=== PATIENT | male | born 1995 | race Asian ===

== ENCOUNTER 2017-02-17 03:28 | Emergency (ER) | payer OTHER ==
[~2017-02-17] VITALS: Ht 182.9 cm; Wt 58.4 kg
[2017-02-17 03:31] VITALS: TEMP 36.8; Ht 182.9 cm; Wt 58.4 kg
[2017-02-17] MEDS ORDERED: KETOROLAC TROMETHAMINE 30 MG/ML VIAL IV STA (03:45)
[2017-02-17 04:15] LABS: URINE APPEARANCE CLEAR (CLEAR); URINE BILIRUBIN NEG (NEG); URINE COLOR DK YELLOW; URINE NITRITE NEG (NEG); URINE PH 6.5 (4.5-7.5); URINE SPECIFIC GRAVITY 1.029 (1.000-1.030); UROBILINOGEN POS (NEG); ZZUR CULT IF INDIC CLEAN CATCH NO
[2017-02-17 04:21] LABS: BASO % 0.1 %; BASO ABS # 0.01 K/uL (0-0.2); COMPLETE YES; HEMATOCRIT 42.4 % (42-52); IG% 0.1 %; LYMPH % 23.8 %; LYMPH ABS # 1.69 K/uL (1.2-3.4); MEAN CELL VOLUME 87.6 fL (80-100); MEAN CORPUSCULAR HEMOGLOBIN 31.8 pg (25-34); MEAN CORPUSCULAR HGB CONC 36.3 g/dl (32-36); MEAN PLATELET VOLUME 9.5 fL (7.4-10.4); MONO % 9.2 %; NEUT % 65.8 %; PLATELET COUNT 159 K/uL (130-400); RED BLOOD COUNT 4.84 M/uL (4.7-6.1)
[2017-02-17 04:22] LABS: MANUAL MICROSCOPIC REQUIRED? NO; REVIEW REQ? NO
[2017-02-17 04:53] LABS: ALT/SGPT 20 U/L (12-78); AST/SGOT 12 U/L (15-37); BLOOD UREA NITROGEN 13 mg/dl (7-18); BUN/CREATININE RATIO 17.7 (10-20); CALCIUM 8.6 mg/dl (8.5-10.1); CARBON DIOXIDE 24 mmol/L (21-32); CHLORIDE 104 mmol/L (98-107); CREATININE 0.75 mg/dl (0.60-1.40); GLUCOSE 104 mg/dl (70-99); POTASSIUM 3.2 mmol/L (3.5-5.1); SODIUM 135 mmol/L (136-145)
[2017-02-17 04:56] LABS: ALB/GLOB RATIO 1.1 (0.9-2); ALKALINE PHOSPHATASE 60 U/L (45-117)
[2017-02-17] MEDS ORDERED: MAGNESIUM CITRATE 296 ML/BTL PO ONE (05:45)
[2017-02-17 05:54] VITALS: BP 104/70; PULSE 92; O2SAT 95
--- NOTE | 2017-02-17 08:14 | DIAGNOSTIC IMAGING REPORT ---
PA CHEST WITH ABDOMINAL SERIES CLINICAL HISTORY: Right lower quadrant abdominal pain. FINDINGS: A PA chest radiograph is obtained. No prior studies are available for comparison at the time of dictation. The cardiomediastinal silhouette is unremarkable. Mild patchy airspace opacities are questioned in the left midlung. The lungs and pleural spaces are otherwise clear. No pneumothorax is seen. The bony thorax is grossly intact. There is mild S-shaped thoracolumbar scoliosis. Supine and erect abdominal radiographs are obtained. No prior studies are available for comparison at the time of dictation. There is a nonobstructed abdominal bowel gas pattern. No evidence of intraperitoneal free air is seen. There are no abnormal abdominal calcifications. The lumbosacral spine and bony pelvis appear intact. IMPRESSION: 1. Question patchy airspace opacities in the left midlung. Correlate clinically for evidence of pneumonia. 2. Nonobstructed abdominal bowel gas pattern. Electronically signed by: Ajay Cloud M.D. 02/17/2017 8:13 AM Dictated Date/Time: 02/17/2017 8:11 AM
--- NOTE | 2017-02-17 22:22 | EMERGENCY ROOM VISIT NOTE ---
History First contact with patient: 03:38 Chief Complaint: ABDOMINAL PAIN Stated Complaint: RIGHT SIDE STOMACH PAIN Nursing Triage Summary: Patient reports left upper abdominal pain with fever since yesterday. History of Present Illness The patient is a 22 year old male who presents to the Emergency Room with complaints of right side lower abdominal pain for the past one day. The patient reports having a fever of 99 at home. The patient has not taken anything [id number] for his symptoms. He is nauseated without vomiting. He has not had a bowel movement in several days. He is eating and drinking as normal. He does not have chest pain, chest tightness, or shortness of breath. No abdominal surgery in the past. He rates his discomfort a 4/10. Review of Systems More than 10 systems were reviewed and otherwise negative with the exception of history of present illness. Past Medical/Surgical History No chronic medical disease Family History No pertinent family history Social History Smoking Status: Never Smoker Current/Historical Medications No Active Prescriptions or Reported Meds Physical Exam Vital Signs Date Time Temp Pulse Resp B/P (MAP) Pulse Ox O2 Delivery O2 Flow Rate FiO2 02/17/17 05:54 92 18 104/70 95 02/17/17 03:31 36.8 108 18 121/74 98 Room Air Physical Exam VITALS: Vitals are noted on the nurse's note and reviewed by myself. Vital signs stable. GENERAL: Well-developed, well-nourished, male who appears mildly anxious but nontoxic., Patient is cooperative with the examination. HEAD: Normocephalic atraumatic. EARS: External ear normal. External auditory canals clear, tympanic membranes pearly ventura without erythema or effusion bilaterally. EYES: Pupils equal round and reactive to light and accommodation. Conjunctivae without injection, sclerae without icterus. Extraocular movements intact. NOSE: Patent, turbinates without inflammation or discharge. MOUTH: Mucous membranes moist. Tonsils are not enlarged. Pharynx without erythema, blood, or exudate. Uvula midline. Airway patent. NECK: Supple without nuchal rigidity. No lymphadenopathy. No thyromegaly. Cervical spine is nontender. HEART: Regular rate and rhythm without murmurs gallops or rubs. LUNGS: Clear to auscultation bilaterally without wheezes, rales or rhonchi. No retractions or accessory muscle use. ABDOMEN: Positive normal bowel sounds x 4. Soft, nontender, without masses or organomegaly. No guarding or rebound tenderness. MUSCULOSKELETAL: No muscle atrophy, erythema, or edema noted. Full range of motion without joint tenderness in all extremities. Medical Decision & Procedures ER Provider Diagnostic Interpretation: PA CHEST WITH ABDOMINAL SERIES CLINICAL HISTORY: Right lower quadrant abdominal pain. FINDINGS: A PA chest radiograph is obtained. No prior studies are available for comparison at the time of dictation. The cardiomediastinal silhouette is unremarkable. Mild patchy airspace opacities are questioned in the left midlung. The lungs and pleural spaces are otherwise clear. No pneumothorax is seen. The bony thorax is grossly intact. There is mild S-shaped thoracolumbar scoliosis. Supine and erect abdominal radiographs are obtained. No prior studies are available for comparison at the time of dictation. There is a nonobstructed abdominal bowel gas pattern. No evidence of intraperitoneal free air is seen. There are no abnormal abdominal calcifications. The lumbosacral spine and bony pelvis appear intact. IMPRESSION: 1. Question patchy airspace opacities in the left midlung. Correlate clinically for evidence of pneumonia. 2. Nonobstructed abdominal bowel gas pattern. Laboratory Results 02/17/17 04:05 Red Blood Count 4.84, Mean Corpuscular Volume 87.6, Mean Corpuscular Hemoglobin 31.8, Mean Corpuscular Hemoglobin Concent 36.3, Mean Platelet Volume 9.5, Neutrophils (%) (Auto) 65.8, Lymphocytes (%) (Auto) 23.8, Monocytes (%) (Auto) 9.2, Eosinophils (%) (Auto) 1.0, Basophils (%) (Auto) 0.1, Neutrophils # (Auto) 4.67, Lymphocytes # (Auto) 1.69, Monocytes # (Auto) 0.65, Eosinophils # (Auto) 0.07, Basophils # (Auto) 0.01 02/17/17 04:05 Test 02/17/17 04:05 02/17/17 04:07 White Blood Count 7.10 K/uL (4.8-10.8) Red Blood Count 4.84 M/uL (4.7-6.1) Hemoglobin 15.4 g/dL (14.0-18.0) Hematocrit 42.4 % (42-52) Mean Corpuscular Volume 87.6 fL (80-100) Mean Corpuscular Hemoglobin 31.8 pg (25-34) Mean Corpuscular Hemoglobin Concent 36.3 g/dl (32-36) Platelet Count 159 K/uL (130-400) Mean Platelet Volume 9.5 fL (7.4-10.4) Neutrophils (%) (Auto) 65.8 % Lymphocytes (%) (Auto) 23.8 % Monocytes (%) (Auto) 9.2 % Eosinophils (%) (Auto) 1.0 % Basophils (%) (Auto) 0.1 % Neutrophils # (Auto) 4.67 K/uL (1.4-6.5) Lymphocytes # (Auto) 1.69 K/uL (1.2-3.4) Monocytes # (Auto) 0.65 K/uL (0.11-0.59) Eosinophils # (Auto) 0.07 K/uL (0-0.5) Basophils # (Auto) 0.01 K/uL (0-0.2) RDW Standard Deviation 41.6 fL (36.4-46.3) RDW Coefficient of Variation 12.9 % (11.5-14.5) Immature Granulocyte % (Auto) 0.1 % Immature Granulocyte # (Auto) 0.01 K/uL (0.00-0.02) Anion Gap 7.0 mmol/L (3-11) Est Creatinine Clear Calc Drug Dose 128.7 ml/min Estimated GFR () > 150.0 Estimated GFR (Non- 131.1 BUN/Creatinine Ratio 17.7 (10-20) Calcium Level 8.6 mg/dl (8.5-10.1) Total Bilirubin 0.5 mg/dl (0.2-1) Aspartate Amino Transf (AST/SGOT) 12 U/L (15-37) Alanine Aminotransferase (ALT/SGPT) 20 U/L (12-78) Alkaline Phosphatase 60 U/L (45-117) Total Protein 7.6 gm/dl (6.4-8.2) Albumin 3.9 gm/dl (3.4-5.0) Globulin 3.7 gm/dl (2.5-4.0) Albumin/Globulin Ratio 1.1 (0.9-2) Lipase 130 U/L (73-393) Urine Color DK YELLOW Urine Appearance CLEAR (CLEAR) Urine pH 6.5 (4.5-7.5) Urine Specific [place] 1.029 (1.000-1.030) Urine Protein NEG (NEG) Urine Glucose (UA) NEG (NEG) Urine Ketones 2+ (NEG) Urine Occult Blood NEG (NEG) Urine Nitrite NEG (NEG) Urine Bilirubin NEG (NEG) Urine Urobilinogen POS (NEG) Urine Leukocyte Esterase NEG (NEG) Medications Administered Medications (Trade) Dose Ordered Sig/Johann Route Start Time Stop Time Status Last Admin Dose Admin Ketorolac Tromethamine (Toradol Inj) 30 mg NOW STAT IV 02/17/17 03:45 02/17/17 03:46 DC 02/17/17 04:29 30 MG ED Course Physical exam and history were performed. Nursing notes, EMR, and Medication List were personally reviewed. Patient appears to have reported right lower quadrant abdominal pain on examination he is nontender in this area. His abdomen is soft without significant palpable tenderness. IV access was established and labs were obtained. The patient was given Toradol here in the department. I elected to start with plain films as the patient appears well on examination. The patient's blood work is as above and was reviewed. He does not have a significantly elevated white blood cell count, nurse anemia, bandemia, or significant electrolyte imbalance. Lipase and transaminases are nondiagnostic. Urine was without significant findings. X-ray is as above, and is without significant abdominal findings. There is possible left sided lung findings, however the patient is not with clinical symptoms that correlate at this time. On repeat examination the patient felt better after Toradol. He continues without findings suggestive of an acute surgical abdomen. CT scan was considered, however the patient does not have a white count does not present like a surgical abdomen. I had a lengthy discussion with the patient regarding his findings today. He does admit to constipation recently, and this may be continuing to his symptoms. I will provide the patient magnesium citrate to use at home. He is to follow-up with his primary care physician/[facility] for further care and management. He was otherwise invited back to the ER if his symptoms worsened. He was pleased with plan of care and rated his discomfort a 0/10 at the time of departure. The chart was completed utilizing [employer] Voice Recognition Software. Grammatical errors, random word insertions, pronoun errors, and incomplete sentences are an occasional consequence of this system due to software limitations, ambient noise, and hardware issues. Any formal questions or concerns about the content, text, or information contained within the body of this dictation should be directly addressed to the provider for clarification. . Medical Decision Differential diagnosis: Etiologies such as appendicitis, diverticulitis, PUD, biliary pathology, UTI, pancreatitis, obstruction, mesenteric ischemia, aortic pathology, infections, inflammatory bowel disease, renal colic, as well as others were entertained. Impression Primary Impression: Abdominal pain Additional Impression: Constipation Departure Information Dispostion Home / Self-Care Condition GOOD Prescriptions No Active Prescriptions or Reported Meds Forms HOME CARE DOCUMENTATION FORM, IMPORTANT VISIT INFORMATION Patient Instructions My [facility] Additional Instructions You were seen and evaluated today on an emergency basis only. This is not a substitute for, or an effort to provide, complete comprehensive medical care. It is not possible to recognize and treat all injuries or illnesses in a single emergency department visit. For this reason it is recommended that you followup with your primary care physician this week for ongoing care and evaluation. For baseline pain relief you may alternate ibuprofen and acetaminophen every 4 hours for pain control. Take 600 mg ibuprofen (Advil) and then 4 hours later take 1000 mg acetaminophen (Tylenol). Do not take more than 3000 mg acetaminophen in a single day. Drink plenty of fluids and remain well hydrated. Take magnesium citrate at home. Drink one half bottle. Wait 1-2 hours and then drink the other half. This should help with a large bowel movement. You are welcome to return to the emergency department anytime with new, worsening, or concerning symptoms. Problem Qualifiers
== END 2017-02-17 05:48 | disposition home or self-care (01) ==
LOC: C.EDB 03:29
DX: R10.31 Right lower quadrant pain (principal); K59.00 Constipation, unspecified; R50.9 Fever, unspecified; R11.0 Nausea

== ENCOUNTER 2017-02-23 17:46 | Emergency (ER) | payer OTHER ==
[~2017-02-23] VITALS: Ht 182.9 cm; Wt 57.6 kg
[2017-02-23 17:55] VITALS: TEMP 36.8; Ht 182.9 cm; Wt 57.6 kg
--- NOTE | 2017-02-23 18:18 | EMERGENCY ROOM VISIT NOTE ---
ED Visit Note First contact with patient: 18:08 CHIEF COMPLAINT: Here was a noise in left lung when breathes HISTORY OF PRESENT ILLNESS: This 22-year-old male presents the ER stating he wants rechecked because he hears a noise in his left lung when he pre-. The patient denies any pain on inspiration. The patient denies any cough, fever, shortness of breath. The patient was seen here on February 17 and there was a patchy infiltrate in the left middle lobe. At that time he was not very symptomatic. He was here for abdominal pain. The patient was placed on Zithromax. He completed the antibiotics yesterday. He was not given an inhaler. REVIEW OF SYSTEMS: 6 system review was performed and was negative unless stated otherwise in history of present illness. PMH: The patient is healthy; recent pneumonia, asthma SOCIAL HISTORY: Patient admits to tobacco use but denies any alcohol use. PHYSICAL EXAM: Vital Signs: Were reviewed Reviewed Nurse's notes. Oxygen saturation is 97 % on which is normal . GENERAL: 22-year-old male appears in no acute distress. MENTAL STATUS: Alert, oriented, coherent. NECK: Supple, non -tender. CHEST: Good expansion bilaterally, symmetrical, no retractions. Very faint inspiratory wheeze noted bilaterally. HEART: Regular and normal heart sounds, no murmur, gallop or rub. EMERGENCY DEPARTMENT COURSE: The patient was evaluated. I discussed with the patient that even know he only take Zithromax for 5 days it actually stays in her system for an additional 5 days. He was given a Ventolin HFA inhaler with taking 2 puffs in the emergency room and using the remainder at home as directed. The patient was discharged home in stable condition. DIAGNOSIS: Pneumonia DISCHARGE INSTRUCTIONS AND TREATMENT: Zithromax is still working even though you are no longer taking any pills. Use the inhaler 2 puffs 4 times a day for 5 days. If symptoms persist or worsen, follow-up with [facility]. Current/Historical Medications No Active Prescriptions or Reported Meds Allergies Coded Allergies: No Known Allergies (Unverified , 02/17/17) Vital Signs Date Time Temp Pulse Resp B/P (MAP) Pulse Ox O2 Delivery O2 Flow Rate FiO2 02/23/17 17:55 36.8 90 16 105/74 97 Room Air Departure Information Prescriptions No Active Prescriptions or Reported Meds Referrals No Doctor, Assigned (PCP) Patient Instructions My [facility]
[2017-02-23] MEDS ORDERED: ALBUTEROL HFA 8 GM INHALER INH ONE (18:30)
[2017-02-23 18:36] VITALS: BP 101/68; PULSE 83; O2SAT 98
== END 2017-02-23 18:38 | disposition home or self-care (01) ==
LOC: C.EDB 17:47 → C.EDD 18:38
DX: J18.9 Pneumonia, unspecified organism (principal); J45.909 Unspecified asthma, uncomplicated; Z72.0 Tobacco use